=== PATIENT | male | born 1960 | race Caucasian/White ===

== ENCOUNTER 2024-07-19 16:52 | Inpatient (IN) | payer OTHER ==
[~2024-07-19 16:52] MED LIST: Iopamidol-370 76% 500 ML MDV (1 ML CHARGE) ONE
[2024-07-19 17:12] LABS: Actual Bicarbonate (HCO3a) 31.6 mEq/L (22-28); Analyzer IN Cardio ER; Base Excess (BEa) 2.1 mEq/L (-2.0 to +3.0); Calcium, Ionized (arterial) 1.06 mmol/L (1.12-1.30); Carboxyhemoglobin (COHb) 1.6 gm% (0.0-3.0); Hematocrit-ABG 49 % (42.0-52.0); Hemoglobin (Hb) 16.8 g/dL (14.0-18.0); Potassium - ABG Lab 5.22 mmol/L (3.70-5.30); pH, Arterial 7.272 (7.35-7.45)
[2024-07-19 17:14] LABS: Puncture Site Right Radial artery
[2024-07-19] MEDS ORDERED: Fentanyl CADD 100 ML IV SCH (17:15)
[2024-07-19] MEDS ORDERED: DOBUTamine 500 mg/250 ml 250 ML ONE (18:35)
[2024-07-19 18:37] LABS: #Basophils Less than 0.03 10x3/uL (0.0-0.2); #Eosinophils Less than 0.03 10x3/uL (0.0-0.7); %Basophils 0.1 % (0.0-1.0); %Lymphocytes 4.1 % (21.0-51.0); %Monocytes 7.5 % (0.0-10.0); %Neutrophils 87.7 % (42.0-75.0); Hematocrit 44.6 % (42.0-52.0); Hemoglobin 14.8 g/dL (14.0-18.0); Mean Corpuscular HGB CONC 33.2 g/dL (32.0-36.0); Mean Corpuscular Hemoglobin 33.8 pg (27.0-31.0); Mean Corpuscular Volume 101.8 fL (78.0-98.0); Mean Platelet Volume 10.7 fL (7.4-10.4); Platelet Count 163 10x3/uL (130-400); RBC Distribution Width 13.4 % (11.5-14.5); Red Blood Cell (RBC) Count 4.38 mill/uL (4.70-6.10)
[2024-07-19 18:48] LABS: ALT (SGPT) 220 U/L (8-55); AST (SGOT) 318 U/L (5-34); Albumin 2.7 g/dL (3.4-4.8); Alkaline Phosphatase 84 U/L (40-110); Anion Gap 16 mmol/L (10-20); BUN (Urea Nitrogen) 47 mg/dL (8.4-25.7); Bilirubin, Total 0.5 mg/dL (0.2-1.2); Calc. Creatinine Clearance 0 mL/min (70-130); Calcium 7.5 mg/dL (7.8-10.44); Carbon Dioxide 28 mmol/L (23-31); Chloride 89 mmol/L (98-107); Estimated GFR 44; Globulin 2.3 g/dL (2.4-3.5); Glucose 122 mg/dL (80-115); Potassium 4.7 mmol/L (3.5-5.1); Sodium 128 mmol/L (136-145)
[2024-07-19 18:57] LABS: Troponin I 0.615 ng/mL (< 0.028)
[2024-07-19 19:00] LABS: Macrocytosis SLIGHT = 6-15 cells HPF (0-5); Platelet Adequacy Comment Platelets Normal; Polychromasia SLIGHT = 2-3 cells HPF (0-2)
[2024-07-19] MEDS ORDERED: Ipratropium/Albuterol 3 ML NEB NEB PRN (19:03)
[2024-07-19] MEDS ORDERED: Acetaminophen 325 MG TAB PO PRN (19:08)
[2024-07-19] MEDS ORDERED: Acetaminophen 650 MG Suppository PR PRN (19:08)
[2024-07-19] MEDS ORDERED: Ondansetron PF 4 MG/2 ML Vial IVP PRN (19:08)
[2024-07-19] MEDS ORDERED: Ventilator Sedation Protocol 1 EACH FS SCH (19:15)
[2024-07-19] MEDS ORDERED: Propofol BOLUS 1,000 MG/100 ML VIAL IV PRN (19:30)
[2024-07-19] MEDS ORDERED: Electrolyte Replacement Protocol FS PRN (19:30)
[2024-07-19] MEDS ORDERED: Fentanyl BOLUS 250 ML IVPB PRN (19:30)
[2024-07-19] MEDS ORDERED: DISCONTINUE PREVIOUS NARCOTIC PAIN MEDICATIONS AND BENZODIAZEPINES FS SCH (19:30)
[2024-07-19] MEDS ORDERED: Morphine 2 MG/ML VIAL SLOW IVP PRN (19:30)
[2024-07-19] MEDS ORDERED: Propofol 1,000 MG/100 ML VIAL IV PRN (19:30)
[2024-07-19] MEDS ORDERED: Dextrose 50% Abboject 50 ML SYRINGE SLOW IVP PRN (21:12)
[2024-07-19] MEDS ORDERED: Glucagon 1 MG/ML KIT IM PRN (21:12)
[2024-07-19] MEDS ORDERED: Dextrose 5% in Water 1,000 ML IV PRN (21:12)
[2024-07-19] MEDS: Electrolyte Replacement Protocol 1 EACH IVPB ONE (22:00)
[2024-07-19 22:21] VITALS: BMI 28.5
[2024-07-19 22:56] LABS: Lactic Acid 1.07 mmol/L (0.5-2.2)
[2024-07-19 23:14] LABS: Troponin I 0.974 ng/mL (< 0.028)
[2024-07-19] MEDS: Thiamine HCl 200 MG/2 ML VIAL SLOW IVP SCH (23:32)
[2024-07-19] MEDS: Nicotine 14 MG PATCH TD SCH (23:32)
[2024-07-20 01:12] LABS: Troponin I 1.081 ng/mL (< 0.028)
[2024-07-20] MEDS: Ipratropium/Albuterol 3 ML NEB NEB SCH (03:29)
[2024-07-20] MEDS: Fentanyl CADD 100 ML IV SCH (03:50)
[2024-07-20 04:28] LABS: ALT (SGPT) 395 U/L (8-55); AST (SGOT) 545 U/L (5-34); Alkaline Phosphatase 92 U/L (40-110); Anion Gap 16 mmol/L (10-20); BUN (Urea Nitrogen) 43 mg/dL (8.4-25.7); Bilirubin, Total 0.5 mg/dL (0.2-1.2); Calc. Creatinine Clearance 62 mL/min (70-130); Calcium 8.3 mg/dL (7.8-10.44); Carbon Dioxide 31 mmol/L (23-31); Cardiac Risk 2.3 (Less than 4.5); Chloride 91 mmol/L (98-107); Cholesterol 63 mg/dl (< 200 Desired); Estimated GFR 54; Globulin 2.5 g/dL (2.4-3.5); Glucose 109 mg/dL (80-115); HDL Cholesterol 28 mg/dL (>60 Neg Risk); LDL Cholesterol, Calculated 23 mg/dL; Magnesium 1.7 mg/dL (1.6-2.6); Protein, Total 5.5 g/dL (5.8-8.1); Sodium 134 mmol/L (136-145); Triglycerides 58 mg/dL (Less than 150)
[2024-07-20 04:48] LABS: #Basophils Less than 0.03 10x3/uL (0.0-0.2); #Eosinophils Less than 0.03 10x3/uL (0.0-0.7); %Basophils 0.1 % (0.0-1.0); %Lymphocytes 7.2 % (21.0-51.0); %Neutrophils 85.4 % (42.0-75.0); Hematocrit 45.6 % (42.0-52.0); Hemoglobin 15.9 g/dL (14.0-18.0); Mean Corpuscular HGB CONC 34.9 g/dL (32.0-36.0); Mean Corpuscular Hemoglobin 33.9 pg (27.0-31.0); Mean Corpuscular Volume 97.2 fL (78.0-98.0); Mean Platelet Volume 11.4 fL (7.4-10.4); Platelet Count 192 10x3/uL (130-400); RBC Distribution Width 13.3 % (11.5-14.5); Red Blood Cell (RBC) Count 4.69 mill/uL (4.70-6.10)
[2024-07-20] MEDS: Furosemide 40 MG (4 mL) VIAL SLOW IVP SCH (06:02)
[2024-07-20] MEDS: Magnesium 2 GM/50 ML(in water) 2 GM in Premix 1 BAG IVPB SCH (06:03)
[2024-07-20 08:06] LABS: Actual Bicarbonate (HCO3a) 37.4 mEq/L (22-28); Base Excess (BEa) 13.8 mEq/L (-2.0 to +3.0); CO2 Tension 41.7 mmHg (35.0-45.0); Calcium, Ionized (arterial) 1.08 mmol/L (1.12-1.30); Carboxyhemoglobin (COHb) 0.8 gm% (0.0-3.0); Hematocrit-ABG 50 % (42.0-52.0); Hemoglobin (Hb) 16.9 g/dL (14.0-18.0); O2 Tension (PaO2), arterial 61.8 mmHg (> 80.0); Potassium - ABG Lab 3.73 mmol/L (3.70-5.30); pH, Arterial 7.571 (7.35-7.45)
[2024-07-20 08:11] LABS: ALV-art Gradient 242.575 mmHg (0-20); Puncture Site Left Radial artery
[2024-07-20] MEDS: Lorazepam 2 MG/ML VIAL SLOW IVP PRN (08:13)
[2024-07-20] MEDS: Folic Acid 1 MG TAB PO SCH (09:45)
[2024-07-20] MEDS: Multivitamin W/ Minerals 1 TAB PO SCH (09:45)
[2024-07-20] MEDS: Pantoprazole 40 MG VIAL IVP SCH (09:45)
[2024-07-20] MEDS: Thiamine HCl 200 MG/2 ML VIAL SLOW IVP SCH (20:05)
[2024-07-21 03:06] LABS: #Basophils Less than 0.03 10x3/uL (0.0-0.2); #Eosinophils Less than 0.03 10x3/uL (0.0-0.7); %Basophils 0.1 % (0.0-1.0); %Lymphocytes 7.5 % (21.0-51.0); %Monocytes 12.5 % (0.0-10.0); %Neutrophils 79.7 % (42.0-75.0); Hematocrit 45.9 % (42.0-52.0); Hemoglobin 15.8 g/dL (14.0-18.0); Mean Corpuscular HGB CONC 34.4 g/dL (32.0-36.0); Mean Corpuscular Hemoglobin 33.6 pg (27.0-31.0); Mean Corpuscular Volume 97.7 fL (78.0-98.0); Mean Platelet Volume 11.1 fL (7.4-10.4); Platelet Count 182 10x3/uL (130-400); RBC Distribution Width 13.9 % (11.5-14.5)
[2024-07-21 06:29] LABS: ALT (SGPT) 336 U/L (8-55); AST (SGOT) 200 U/L (5-34); Alkaline Phosphatase 91 U/L (40-110); Anion Gap 17 mmol/L (10-20); BUN (Urea Nitrogen) 36 mg/dL (8.4-25.7); Bilirubin, Total 0.7 mg/dL (0.2-1.2); Calc. Creatinine Clearance 74 mL/min (70-130); Calcium 8.3 mg/dL (7.8-10.44); Carbon Dioxide 34 mmol/L (23-31); Chloride 90 mmol/L (98-107); Estimated GFR 69; Globulin 2.7 g/dL (2.4-3.5); Glucose 109 mg/dL (80-115); Potassium 3.6 mmol/L (3.5-5.1); Protein, Total 5.7 g/dL (5.8-8.1); Sodium 137 mmol/L (136-145)
[2024-07-21] MEDS ORDERED: acetaZOLAMIDE Sodium 500 mg Vial IVP SCH (09:00)
[2024-07-21] MEDS: Furosemide 40 MG (4 mL) VIAL SLOW IVP SCH (09:34)
[2024-07-21] MEDS: acetaZOLAMIDE Sodium 500 mg Vial IVP SCH (09:35)
[2024-07-21] MEDS: Potassium Chloride 20 MEQ TAB PO SCH (09:35)
[2024-07-21] MEDS: Aspirin 81 mg Enteric Coated Tablet PO SCH (09:35)
[2024-07-21] MEDS: Sterile Water 10 ML VIAL IVP SCH (09:36)
[2024-07-21] MEDS: DOBUTamine 500 mg/250 ml 250 ML IVPB SCH (09:37)
[2024-07-21] MEDS: FLU (Fluarix Triv) TS24-25(6MOS UP)/PF 45 MCG/0.5 ML Syringe IM ONE (10:57)
[2024-07-21] MEDS: Enoxaparin 80 MG (0.8 mL) SYRINGE SC SCH (11:08)
[2024-07-21] MEDS: Potassium Chloride 40 MEQ in Premix 1 BAG IVPB SCH (11:10)
[2024-07-21 18:04] LABS: Potassium 4.2 mmol/L (3.5-5.1)
[2024-07-22 04:28] LABS: #Basophils Less than 0.03 10x3/uL (0.0-0.2); %Basophils 0.2 % (0.0-1.0); %Eosinophils 0.4 % (0.0-10.0); %Lymphocytes 9.5 % (21.0-51.0); %Monocytes 14.5 % (0.0-10.0); %Neutrophils 75.1 % (42.0-75.0); Hemoglobin 15.6 g/dL (14.0-18.0); Mean Corpuscular HGB CONC 32.5 g/dL (32.0-36.0); Mean Corpuscular Hemoglobin 33.5 pg (27.0-31.0); Mean Corpuscular Volume 103.2 fL (78.0-98.0); Mean Platelet Volume 10.7 fL (7.4-10.4); Platelet Count 164 10x3/uL (130-400); RBC Distribution Width 14.3 % (11.5-14.5); Red Blood Cell (RBC) Count 4.65 mill/uL (4.70-6.10)
[2024-07-22 04:45] LABS: ALT (SGPT) 270 U/L (8-55); AST (SGOT) 106 U/L (5-34); Albumin 3.1 g/dL (3.4-4.8); Alkaline Phosphatase 99 U/L (40-110); Anion Gap 12 mmol/L (10-20); BUN (Urea Nitrogen) 20 mg/dL (8.4-25.7); Bilirubin, Total 0.8 mg/dL (0.2-1.2); Calc. Creatinine Clearance 89 mL/min (70-130); Calcium 8.4 mg/dL (7.8-10.44); Carbon Dioxide 33 mmol/L (23-31); Chloride 94 mmol/L (98-107); Estimated GFR 86; Globulin 2.9 g/dL (2.4-3.5); Glucose 124 mg/dL (80-115); Magnesium 1.9 mg/dL (1.6-2.6); Potassium 4.1 mmol/L (3.5-5.1); Sodium 135 mmol/L (136-145)
[2024-07-22] MEDS: Thiamine 100 MG TAB PO SCH (08:17)
[2024-07-22] MEDS: Pantoprazole 40 MG DR.TAB PO SCH (08:17)
[2024-07-22] MEDS: Magnesium 2 GM/50 ML(in water) 2 GM in Premix 1 BAG IVPB SCH (08:17)
[2024-07-22] MEDS: Furosemide 40 MG (4 mL) VIAL SLOW IVP SCH (08:18)
[2024-07-22] MEDS: Magnesium 2 GM/50 ML BAG (IN WATER) IVPB SCH (10:03)
[2024-07-23 03:32] LABS: #Basophils 0.03 10x3/uL (0.0-0.2); %Basophils 0.3 % (0.0-1.0); %Eosinophils 2.6 % (0.0-10.0); %Lymphocytes 11.3 % (21.0-51.0); %Monocytes 16.2 % (0.0-10.0); %Neutrophils 69.3 % (42.0-75.0); Hematocrit 50.5 % (42.0-52.0); Hemoglobin 16.4 g/dL (14.0-18.0); Mean Corpuscular HGB CONC 32.5 g/dL (32.0-36.0); Mean Corpuscular Hemoglobin 33.1 pg (27.0-31.0); Mean Corpuscular Volume 101.8 fL (78.0-98.0); Mean Platelet Volume 11.1 fL (7.4-10.4); Platelet Count 152 10x3/uL (130-400); RBC Distribution Width 13.9 % (11.5-14.5); Red Blood Cell (RBC) Count 4.96 mill/uL (4.70-6.10)
[2024-07-23 03:51] LABS: ALT (SGPT) 203 U/L (8-55); AST (SGOT) 68 U/L (5-34); Albumin 2.9 g/dL (3.4-4.8); Alkaline Phosphatase 98 U/L (40-110); Anion Gap 12 mmol/L (10-20); BUN (Urea Nitrogen) 21 mg/dL (8.4-25.7); Bilirubin, Total 0.9 mg/dL (0.2-1.2); Calc. Creatinine Clearance 93 mL/min (70-130); Calcium 8.3 mg/dL (7.8-10.44); Carbon Dioxide 31 mmol/L (23-31); Chloride 94 mmol/L (98-107); Estimated GFR 96; Globulin 3.2 g/dL (2.4-3.5); Glucose 116 mg/dL (80-115); Potassium 4.2 mmol/L (3.5-5.1); Protein, Total 6.1 g/dL (5.8-8.1); Sodium 133 mmol/L (136-145)
[2024-07-23] MEDS: Enoxaparin 40 MG (0.4 mL) SYRINGE SC SCH (09:45)
[2024-07-23] MEDS ORDERED: Lorazepam 2 MG/ML VIAL IM PRN (14:29)
[2024-07-23] MEDS ORDERED: Lorazepam 1 MG TAB PO PRN (14:29)
[2024-07-23] MEDS: Lorazepam 1 MG TAB PO SCH (16:51)
[2024-07-24 06:21] LABS: #Basophils 0.03 10x3/uL (0.0-0.2); %Basophils 0.3 % (0.0-1.0); %Eosinophils 3.3 % (0.0-10.0); %Lymphocytes 11.9 % (21.0-51.0); Hematocrit 50.5 % (42.0-52.0); Hemoglobin 16.2 g/dL (14.0-18.0); Mean Corpuscular HGB CONC 32.1 g/dL (32.0-36.0); Mean Corpuscular Hemoglobin 32.9 pg (27.0-31.0); Mean Corpuscular Volume 102.6 fL (78.0-98.0); Mean Platelet Volume 10.5 fL (7.4-10.4); Platelet Count 176 10x3/uL (130-400); RBC Distribution Width 13.8 % (11.5-14.5); Red Blood Cell (RBC) Count 4.92 mill/uL (4.70-6.10)
[2024-07-24 06:43] LABS: ALT (SGPT) 131 U/L (8-55); AST (SGOT) 41 U/L (5-34); Albumin 2.7 g/dL (3.4-4.8); Alkaline Phosphatase 92 U/L (40-110); Anion Gap 12 mmol/L (10-20); BUN (Urea Nitrogen) 18 mg/dL (8.4-25.7); Bilirubin, Total 0.8 mg/dL (0.2-1.2); Calc. Creatinine Clearance 114 mL/min (70-130); Calcium 8.6 mg/dL (7.8-10.44); Carbon Dioxide 32 mmol/L (23-31); Chloride 94 mmol/L (98-107); Estimated GFR 102; Globulin 3.3 g/dL (2.4-3.5); Glucose 103 mg/dL (80-115); Potassium 3.8 mmol/L (3.5-5.1); Sodium 134 mmol/L (136-145)
[2024-07-24] MEDS: Lorazepam 1 MG TAB PO PRN (18:20)
[2024-07-25 06:20] LABS: #Basophils 0.05 10x3/uL (0.0-0.2); %Basophils 0.5 % (0.0-1.0); %Eosinophils 3.6 % (0.0-10.0); %Lymphocytes 14.4 % (21.0-51.0); %Monocytes 16.4 % (0.0-10.0); %Neutrophils 64.7 % (42.0-75.0); Hemoglobin 16.4 g/dL (14.0-18.0); Mean Corpuscular HGB CONC 32.2 g/dL (32.0-36.0); Mean Corpuscular Hemoglobin 33.3 pg (27.0-31.0); Mean Corpuscular Volume 103.4 fL (78.0-98.0); Mean Platelet Volume 10.4 fL (7.4-10.4); Platelet Count 187 10x3/uL (130-400); RBC Distribution Width 13.7 % (11.5-14.5); Red Blood Cell (RBC) Count 4.93 mill/uL (4.70-6.10)
[2024-07-25 06:50] LABS: ALT (SGPT) 108 U/L (8-55); AST (SGOT) 52 U/L (5-34); Albumin 2.9 g/dL (3.4-4.8); Alkaline Phosphatase 99 U/L (40-110); Anion Gap 10 mmol/L (10-20); BUN (Urea Nitrogen) 19 mg/dL (8.4-25.7); Bilirubin, Total 0.7 mg/dL (0.2-1.2); Calc. Creatinine Clearance 107 mL/min (70-130); Calcium 9.2 mg/dL (7.8-10.44); Carbon Dioxide 36 mmol/L (23-31); Chloride 96 mmol/L (98-107); Estimated GFR 100; Globulin 3.5 g/dL (2.4-3.5); Glucose 101 mg/dL (80-115); Potassium 3.5 mmol/L (3.5-5.1); Protein, Total 6.4 g/dL (5.8-8.1); Sodium 138 mmol/L (136-145)
[2024-07-25] MEDS: Potassium Chloride 20 MEQ TAB PO SCH (09:15)
[2024-07-25] MEDS ORDERED: Lorazepam 1 MG TAB PO PRN (14:29)
[2024-07-25] MEDS: Lorazepam 0.5 MG TAB PO SCH (15:37)
[2024-07-26 04:20] LABS: #Basophils 0.06 10x3/uL (0.0-0.2); %Basophils 0.5 % (0.0-1.0); %Eosinophils 2.9 % (0.0-10.0); %Lymphocytes 17.1 % (21.0-51.0); %Monocytes 16.8 % (0.0-10.0); %Neutrophils 62.3 % (42.0-75.0); Hematocrit 49.7 % (42.0-52.0); Hemoglobin 15.9 g/dL (14.0-18.0); Mean Corpuscular Volume 103.1 fL (78.0-98.0); Mean Platelet Volume 10.9 fL (7.4-10.4); Platelet Count 223 10x3/uL (130-400); RBC Distribution Width 13.9 % (11.5-14.5); Red Blood Cell (RBC) Count 4.82 mill/uL (4.70-6.10)
[2024-07-26 04:52] LABS: ALT (SGPT) 102 U/L (8-55); AST (SGOT) 52 U/L (5-34); Albumin 2.9 g/dL (3.4-4.8); Alkaline Phosphatase 98 U/L (40-110); Anion Gap 12 mmol/L (10-20); BUN (Urea Nitrogen) 22 mg/dL (8.4-25.7); Bilirubin, Total 0.5 mg/dL (0.2-1.2); Calc. Creatinine Clearance 110 mL/min (70-130); Calcium 9.2 mg/dL (7.8-10.44); Carbon Dioxide 33 mmol/L (23-31); Chloride 98 mmol/L (98-107); Estimated GFR 100; Globulin 3.7 g/dL (2.4-3.5); Glucose 97 mg/dL (80-115); Potassium 4.1 mmol/L (3.5-5.1); Protein, Total 6.6 g/dL (5.8-8.1); Sodium 139 mmol/L (136-145)
[2024-07-26] MEDS ORDERED: Communication Order-Pharmacy FS SCH (06:00)
[2024-07-26] MEDS: Sodium Chloride 0.9% 1,000 ML IV SCH (06:11)
[2024-07-26] MEDS ORDERED: Midazolam HCl 2 mg/2 ml Vial ONE (09:42)
[2024-07-26] MEDS ORDERED: Nitroglycerin 50 MG/250 ML BOT 0 ML ONE (09:42)
[2024-07-26] MEDS ORDERED: Heparin 10,000 UNITS/ 10 ML VIAL ONE (09:42)
[2024-07-26] MEDS ORDERED: fentaNYL 50 mcg/mL 1 mL Vial ONE (09:42)
[2024-07-26] MEDS ORDERED: Sodium Chloride 0.9% 200 ML IV PRN (11:22)
[2024-07-26] MEDS ORDERED: Nitroglycerin 0.4 MG TAB (25 Tab Bottle) SL PRN (11:22)
[2024-07-26] MEDS ORDERED: Iopamidol 370 76% 100 ML VIAL ONE (14:59)
[2024-07-26] MEDS: Sacubitril 24MG/Valsartan 26 MG TAB PO SCH (19:52)
[2024-07-26] MEDS: Lorazepam 0.5 MG TAB PO PRN (19:53)
[2024-07-26] MEDS ORDERED: Sacubitril 24MG/Valsartan 26 MG TAB PO SCH (21:00)
[2024-07-27 03:39] LABS: #Basophils 0.06 10x3/uL (0.0-0.2); %Basophils 0.5 % (0.0-1.0); %Eosinophils 2.7 % (0.0-10.0); %Lymphocytes 16.8 % (21.0-51.0); %Monocytes 15.7 % (0.0-10.0); %Neutrophils 63.9 % (42.0-75.0); Hematocrit 50.5 % (42.0-52.0); Mean Corpuscular HGB CONC 31.7 g/dL (32.0-36.0); Mean Corpuscular Hemoglobin 32.5 pg (27.0-31.0); Mean Corpuscular Volume 102.6 fL (78.0-98.0); Mean Platelet Volume 10.8 fL (7.4-10.4); Platelet Count 209 10x3/uL (130-400); RBC Distribution Width 13.9 % (11.5-14.5); Red Blood Cell (RBC) Count 4.92 mill/uL (4.70-6.10)
[2024-07-27 03:54] LABS: ALT (SGPT) 80 U/L (8-55); AST (SGOT) 42 U/L (5-34); Albumin 2.6 g/dL (3.4-4.8); Alkaline Phosphatase 92 U/L (40-110); Anion Gap 9 mmol/L (10-20); BUN (Urea Nitrogen) 18 mg/dL (8.4-25.7); Bilirubin, Total 0.5 mg/dL (0.2-1.2); Calc. Creatinine Clearance 114 mL/min (70-130); Calcium 8.6 mg/dL (7.8-10.44); Carbon Dioxide 31 mmol/L (23-31); Chloride 102 mmol/L (98-107); Estimated GFR 102; Globulin 3.4 g/dL (2.4-3.5); Glucose 99 mg/dL (80-115); Potassium 3.8 mmol/L (3.5-5.1); Sodium 138 mmol/L (136-145)
[2024-07-27] MEDS: Empagliflozin 10 MG TAB PO SCH (10:12)
[2024-07-27] MEDS: Metoprolol Succinate XL 25 MG ER.TAB PO SCH (10:12)
[2024-07-27 15:32] VITALS: BMI 26.3
[2024-07-28 04:17] LABS: #Basophils 0.07 10x3/uL (0.0-0.2); %Basophils 0.8 % (0.0-1.0); %Eosinophils 2.4 % (0.0-10.0); %Lymphocytes 20.2 % (21.0-51.0); %Monocytes 14.9 % (0.0-10.0); %Neutrophils 61.4 % (42.0-75.0); Hemoglobin 16.7 g/dL (14.0-18.0); Mean Corpuscular HGB CONC 32.1 g/dL (32.0-36.0); Mean Corpuscular Hemoglobin 32.8 pg (27.0-31.0); Mean Corpuscular Volume 102.2 fL (78.0-98.0); Platelet Count 247 10x3/uL (130-400); RBC Distribution Width 13.9 % (11.5-14.5); Red Blood Cell (RBC) Count 5.09 mill/uL (4.70-6.10)
[2024-07-28 04:33] LABS: Calc. Creatinine Clearance 100 mL/min (70-130); Estimated GFR 98
[2024-07-28 04:34] LABS: Anion Gap 10 mmol/L (10-20); BUN (Urea Nitrogen) 17 mg/dL (8.4-25.7); Calcium 8.9 mg/dL (7.8-10.44); Carbon Dioxide 30 mmol/L (23-31); Chloride 103 mmol/L (98-107); Glucose 94 mg/dL (80-115); Potassium 3.9 mmol/L (3.5-5.1); Sodium 139 mmol/L (136-145)
[2024-07-28] MEDS: Enoxaparin 40 MG (0.4 mL) SYRINGE SC SCH (10:08)
[2024-07-28] MEDS: Metoprolol Succinate XL 25 MG ER.TAB PO SCH (10:30)
[2024-07-28] MEDS: Torsemide 20 MG TAB PO SCH (12:58)
[2024-07-29 04:53] LABS: #Basophils 0.06 10x3/uL (0.0-0.2); %Basophils 0.7 % (0.0-1.0); %Neutrophils 60.8 % (42.0-75.0); Hematocrit 50.7 % (42.0-52.0); Hemoglobin 16.4 g/dL (14.0-18.0); Mean Corpuscular HGB CONC 32.3 g/dL (32.0-36.0); Mean Corpuscular Hemoglobin 32.7 pg (27.0-31.0); Mean Corpuscular Volume 101.2 fL (78.0-98.0); Mean Platelet Volume 11.3 fL (7.4-10.4); Platelet Count 249 10x3/uL (130-400); RBC Distribution Width 14.2 % (11.5-14.5); Red Blood Cell (RBC) Count 5.01 mill/uL (4.70-6.10)
[2024-07-29 05:12] LABS: Anion Gap 12 mmol/L (10-20); BUN (Urea Nitrogen) 18 mg/dL (8.4-25.7); Calc. Creatinine Clearance 98 mL/min (70-130); Calcium 8.8 mg/dL (7.8-10.44); Carbon Dioxide 25 mmol/L (23-31); Chloride 105 mmol/L (98-107); Estimated GFR 97; Glucose 92 mg/dL (80-115); Potassium 3.5 mmol/L (3.5-5.1); Sodium 138 mmol/L (136-145)
[2024-07-29] MEDS: Potassium Chloride 20 MEQ TAB PO SCH (08:32)
[2024-07-29] MEDS: Torsemide 20 MG TAB PO SCH (08:32)
[2024-07-29] MEDS: Rosuvastatin 5 MG TAB PO SCH (21:22)
[2024-07-30 04:57] LABS: #Basophils 0.07 10x3/uL (0.0-0.2); %Basophils 0.7 % (0.0-1.0); %Eosinophils 2.3 % (0.0-10.0); %Lymphocytes 27.9 % (21.0-51.0); %Monocytes 10.2 % (0.0-10.0); %Neutrophils 58.5 % (42.0-75.0); Hematocrit 48.9 % (42.0-52.0); Hemoglobin 16.1 g/dL (14.0-18.0); Mean Corpuscular HGB CONC 32.9 g/dL (32.0-36.0); Mean Corpuscular Hemoglobin 33.3 pg (27.0-31.0); Mean Platelet Volume 11.5 fL (7.4-10.4); Platelet Count 255 10x3/uL (130-400); RBC Distribution Width 14.1 % (11.5-14.5); Red Blood Cell (RBC) Count 4.84 mill/uL (4.70-6.10)
[2024-07-30 05:20] LABS: Anion Gap 13 mmol/L (10-20); BUN (Urea Nitrogen) 16 mg/dL (8.4-25.7); Calc. Creatinine Clearance 82 mL/min (70-130); Carbon Dioxide 27 mmol/L (23-31); Chloride 101 mmol/L (98-107); Estimated GFR 82; Glucose 98 mg/dL (80-115); Potassium 3.7 mmol/L (3.5-5.1); Sodium 137 mmol/L (136-145)
[2024-07-30 08:23] VITALS: TEMP 97.7
[2024-07-30] MEDS: Spironolactone 25 MG TAB PO SCH (09:39)
[2024-07-30] MEDS: Torsemide 10 MG TAB PO SCH (09:39)
[2024-07-30 10:33] VITALS: BP 158/81
== END 2024-07-30 17:15 | disposition home or self-care (01) | DRG 208 ==
LOC: ERS 16:52 → CCU 19:14 → IMCU/EMU 07-22 18:30 → 2NO 07-28 07:58
PROVIDERS: ADMIT Student in an Organized Health Care Education/Training Program; ATTEND Family Medicine
PROC: 5A1935Z Respiratory Ventilation, Less than 24 Consecutive Hours (ICD-10-PCS; principal; 2024-07-19)
PROC: 0BH17EZ Insertion of Endotracheal Airway into Trachea, Via Natural or Artificial Opening (ICD-10-PCS; 2024-07-19)
PROC: 4A023N7 Measurement of Cardiac Sampling and Pressure, Left Heart, Percutaneous Approach (ICD-10-PCS; 2024-07-19)
PROC: B2111ZZ Fluoroscopy of Multiple Coronary Arteries using Low Osmolar Contrast (ICD-10-PCS; 2024-07-19)
DX: J96.02 Acute respiratory failure with hypercapnia (principal); I50.23 Acute on chronic systolic (congestive) heart failure; R57.0 Cardiogenic shock; I21.A1 Myocardial infarction type 2; I13.0 Hypertensive heart and chronic kidney disease with heart failure and stage 1 through stage 4 chronic kidney disease, or unspecified chronic kidney disease; N17.9 Acute kidney failure, unspecified; E87.1 Hypo-osmolality and hyponatremia; E87.3 Alkalosis; J98.11 Atelectasis; I42.8 Other cardiomyopathies; J96.01 Acute respiratory failure with hypoxia; J44.9 Chronic obstructive pulmonary disease, unspecified; R74.01 Elevation of levels of liver transaminase levels; N18.30 Chronic kidney disease, stage 3 unspecified; I27.20 Pulmonary hypertension, unspecified; F10.20 Alcohol dependence, uncomplicated; F17.210 Nicotine dependence, cigarettes, uncomplicated; I25.10 Atherosclerotic heart disease of native coronary artery without angina pectoris; Z91.030 Bee allergy status; Z60.2 Problems related to living alone; I45.10 Unspecified right bundle-branch block; Z79.899 Other long term (current) drug therapy; Z79.82 Long term (current) use of aspirin; Z79.51 Long term (current) use of inhaled steroids
CPT/HCPCS: 36415; 36416; 36556; 36600; 71045; 71275; 76705; 80048; 80053; 80061; 82805; 83605; 83735; 83880; 84443; 84484; 85025; 93005; 93306; 93458; 93798; 94002; 94003; 94640; 96365; 96366; 96375; 97139; 99152; 99153; 99292; C1769; C1887; C1894; J1120; J1250; J1644; J1650; J1940; J2060; J2250; J2470; J3010; J3411; J3475; J3480; J7030; J7620; Q9967